=== PATIENT | male | born 1985 | race Caucasian/White ===

== ENCOUNTER 2017-09-29 15:59 | Emergency (ER) | payer OTHER ==
[~2017-09-29] VITALS: Ht 177.8 cm; Wt 81.5 kg
[2017-09-29 16:06] VITALS: BP 136/91; TEMP 98.8
[2017-09-29] MEDS ORDERED: MOTRIN 800800 MG/TAB PO (16:08)
[2017-09-29 17:12] VITALS: PULSE 70
== END 2017-09-29 17:13 | disposition home or self-care (01) ==
LOC: COL.ER 15:59
DX: S46.211A Strain of muscle, fascia and tendon of other parts of biceps, right arm, initial encounter (principal); Z79.1 Long term (current) use of non-steroidal anti-inflammatories (NSAID); X50.0XXA Overexertion from strenuous movement or load, initial encounter; Y92.009 Unspecified place in unspecified non-institutional (private) residence as the place of occurrence of the external cause
CPT/HCPCS: J1885